=== PATIENT | male | born 1980 | race Caucasian/White ===

== ENCOUNTER 2022-12-18 10:54 | Emergency (ER) | payer OTHER ==
[~2022-12-18] VITALS: Ht 175.3 cm; Wt 107.0 kg
[2022-12-18 11:38] VITALS: BP 128/78; PULSE 60; RESP 16; TEMP 96.9; O2SAT 98
[2022-12-18] MEDS ORDERED: CYCL-839 PO (13:07)
[2022-12-18] MEDS ORDERED: IBUP-1456 PO (13:07)
== END 2022-12-18 13:13 | disposition home or self-care (01) ==
LOC: ER 10:54
DX: S16.1XXA Strain of muscle, fascia and tendon at neck level, initial encounter (principal); F17.210 Nicotine dependence, cigarettes, uncomplicated; Z79.1 Long term (current) use of non-steroidal anti-inflammatories (NSAID); Z79.899 Other long term (current) drug therapy; V49.49XA Driver injured in collision with other motor vehicles in traffic accident, initial encounter; Y93.I9 Activity, other involving external motion; Y92.89 Other specified places as the place of occurrence of the external cause; Y99.8 Other external cause status
CPT/HCPCS: 72040